=== PATIENT | male | born 1995 | race Caucasian/White ===

== ENCOUNTER → 2018-10-30 17:43 | Outpatient (CLI) | payer BC, SELFPAY ==
--- NOTE | 2018-10-30 17:50 | CT_ITS ---
STUDY: CT MAXILLOFACIAL SINUSES REASON FOR EXAM: Male, 23 years old. Sinusitis and hearing loss. RADIATION DOSAGE (If Supplied By Facility): CTDIvol = ( 33.06 ) mGy, DLP = ( 887.57 ) mGycm TECHNIQUE: The patient was scanned in a multi detector CT scanner. High resolution axial imaging was performed without the administration of intravenous contrast material. Sagittal and coronal images were reconstructed. Individualized dose optimization techniques were used for this CT. COMPARISON: None. FINDINGS: FRONTAL SINUSES: Normal aeration, without mucosal inflammatory disease. ETHMOIDAL SINUSES: There is mild opacification of the ethmoid sinuses. MAXILLARY SINUSES: There is mild opacification of the left maxillary sinus. The maxillary sinus ostia are patent. SPHENOIDAL SINUSES: Normal aeration, without mucosal inflammatory disease. Normal bilateral middle turbinates. Normal bilateral inferior turbinates. Normal midline nasal septum. There is patency of the bilateral nasal airways. The visualized osseous structures are normal. The visualized bilateral orbital contents are normal. There is extensive opacification of the mastoid air cells bilaterally. There is associated opacification adjacent to the bilateral middle ear ossicles. CT/Sinus/Facial Bone IMPRESSION: Findings consistent with a history of bilateral otomastoiditis. Opacification of the ethmoid and left maxillary sinuses consistent with a history of sinusitis. Electronically Signed: Ana Aragon MD at 9:45 EDT Tel , Service support ,
== END ==
PROVIDERS: Referring Provider Otolaryngology; Visit Provider Otolaryngology
DX: J32.9 Chronic sinusitis, unspecified (principal)
CPT/HCPCS: 70486